=== PATIENT | male | born 1970 | race Caucasian/White ===

== ENCOUNTER 2018-08-15 21:27 | Emergency (ER) | payer OTHER, MEDICARE ==
[2018-08-15] MEDS ORDERED: BENADRYL 50 MG/ML IV ONE (21:46)
[2018-08-15] MEDS ORDERED: solu-MEDROL 125 MG IV ONE (21:46)
[2018-08-15] MEDS ORDERED: Lasix 40 MG/4 ML IV ONE (21:48)
--- NOTE | 2018-08-15 21:54 | ERPHSYRPT ---
- History of Present Illness Time Seen by Provider: 08/15/18 21:40 Source: patient Exam Limitations: clinical condition Patient Subjective Stated Complaint: pt states he has swelling in his hands and feet and a red rash on his feet which he thinks may be an allergic reaction. Triage Nursing Assessment: pt alert and oriented. answers questions approp. pt ambulatoryw ith steady gait noted. arrive with officer from longterm. respirations nonlabored with lungs cta. rash noted to extremities and body- pt states is his normal qwith psoriasis. petichial rash to tops of feet pt states is new. pitting edema 2+ to bilat hands and feet. Physician History: PATIENT WITH A HISTORY OF DEPRESSION AND PSORIASIS STATES HE DEVELOPED AN ALLERGIC REACTION 1 WEEK AGO AND NOW HAS PROGRESSIVE SWELLING WITH A RASH OVER HIS HANDS AND FEET, ASSOCIATED WITH GENERALIZED ITCHING. PATIENT DENIES DIFFICULTY BREATHING OR SWALLOWING PATIENT STATES HE HAS AN UNKNOWN EXPOSURE. STATES HE MAY HAVE HAD SOME EXPOSURE WHILE CLEANING WITH BLEACH 1 WEEK AGO. Timing/Duration: day(s) Quality: itchy, painful Severity: moderate Location: hands, feet Possible Causes: no cause identified Modifying Factors: Improves With: other (TOOK 1 DOSE OF BENADRYL 1 WEEK AGO) Associated Symptoms: change in skin texture Hx Tetanus, Diphtheria Vaccination/Date Given: Yes Hx Influenza Vaccination/Date Given: No Hx Pneumococcal Vaccination/Date Given: No Immunizations Up to Date: Yes - Review of Systems Constitutional: No Fever, No Chills Eyes: No Symptoms Ears, Nose, & Throat: No Symptoms Respiratory: No Symptoms, No Cough, No Dyspnea Cardiac: No Symptoms, No Chest Pain, No Edema, No Syncope Abdominal/Gastrointestinal: No Abdominal Pain, No Nausea, No Vomiting, No Diarrhea Genitourinary Symptoms: No Symptoms, No Dysuria Musculoskeletal: No Back Pain, No Neck Pain Skin: Pruritis, Skin Lesions, No Rash Neurological: No Dizziness, No Focal Weakness, No Sensory Changes Psychological: No Symptoms Endocrine: No Symptoms All Other Systems: Reviewed and Negative - Past Medical History Pertinent Past Medical History: No - Past Surgical History Past Surgical History: Yes Other Surgical History: back surgery x3 - Social History Smoking Status: Former smoker Exposure to second hand smoke: No Drug Use: none Patient Lives Alone: No ([facility]) - Nursing Vital Signs Nursing Vital Signs: Initial Vital Signs Temperature 97.8 F 08/15/18 21:29 Pulse Rate 83 08/15/18 21:29 Respiratory Rate 18 08/15/18 21:29 Blood Pressure 167/74 08/15/18 21:29 O2 Sat by Pulse Oximetry 95 08/15/18 21:29 Pain Scale Pain Intensity 0 - Physical Exam General Appearance: no apparent distress, alert Eye Exam: PERRL/EOMI, eyes nml inspection Ears, Nose, Throat Exam: normal ENT inspection, pharynx normal, moist mucous membranes Neck Exam: normal inspection, non-tender, supple, full range of motion Respiratory Exam: normal breath sounds, lungs clear, No respiratory distress Cardiovascular Exam: regular rate/rhythm, normal heart sounds Gastrointestinal/Abdomen Exam: soft, mass, No tenderness Back Exam: normal inspection, normal range of motion, No CVA tenderness, No vertebral tenderness Extremity Exam: normal inspection, normal range of motion Neurologic Exam: alert, oriented x 3, cooperative, normal mood/affect, sensation nml, No motor deficits Skin Exam: warm, dry, other (SCALY LESIONS OVER KNEES, ELBOWS WITH PETECHIAE ERTHERMA OVER HAND AND FEET WITH 1+ EDEMA OF HANDS, KWOK AND FEET) SpO2: 96 Oxygen Delivery: Room Air Ordered Tests: Active Orders 24 hr Category Date Time Status BMP Stat Lab 08/15/18 21:46 Ordered CBC W DIFF Stat Lab 08/15/18 21:46 Ordered Medication Summary Discontinued Medications Generic Name Dose Route Start Last Admin Trade Name Oumou PRN Reason Stop Dose Admin Diphenhydramine HCl 50 mg 08/15/18 21:46 08/15/18 22:49 Benadryl 50 Mg/Ml IV 08/15/18 21:47 Not Given STAT ONE Diphenhydramine HCl 50 mg 08/15/18 22:25 08/15/18 22:42 Benadryl 50 Mg/Ml IM 08/15/18 22:26 50 mg STAT ONE Administration Diphenhydramine HCl Confirm 08/15/18 22:29 Benadryl 50 Mg/Ml Administered 08/15/18 22:30 Dose 50 mg .ROUTE .STK-MED ONE Furosemide 40 mg 08/15/18 21:48 08/15/18 22:48 Lasix 40 Mg/4 Ml IV 08/15/18 21:49 Not Given STAT ONE Furosemide 40 mg 08/15/18 22:26 08/15/18 22:43 Lasix 40 Mg PO 08/15/18 22:27 40 mg STAT ONE Administration Furosemide Confirm 08/15/18 22:37 Lasix 40 Mg Administered 08/15/18 22:38 Dose 40 mg .ROUTE .STK-MED ONE Sodium Chloride 1,000 mls @ 50 mls/hr 08/15/18 22:00 08/15/18 22:48 Sodium Chloride 0.9% 1000 Ml IV 09/14/18 21:59 Not Given .Q20H ORI Methylprednisolone Sodium Succinate 125 mg 08/15/18 21:46 08/15/18 22:48 Solu-Medrol 125 Mg IV 08/15/18 21:47 Not Given STAT ONE Prednisone 60 mg 08/15/18 22:25 08/15/18 22:43 Deltasone 20 Mg PO 08/15/18 22:26 60 mg STAT ONE Administration Prednisone Confirm 08/15/18 22:29 Deltasone 20 Mg Administered 08/15/18 22:30 Dose 60 mg .ROUTE .STK-MED ONE - Progress Progress Note: 08/15/18 22:20 ADMINISTERED BENADRYL 50MG IM, PREDNISONE 60MG AND LASIX 40MG PO 08/15/18 22:26 08/15/18 23:15, ITCHING HAS IMPROVED Counseled pt/family regarding: lab results, diagnosis, need for follow-up - Departure Time of Disposition: 23:25 Departure Disposition: Residential/[facility] Clinical Impression: CONTACT DERMATITIS Condition: Stable Critical Care Time: No Additional Instructions: GIVE BENADRYL 50MG EVERY 4 HOURS FOR ITCHING NEEDED EVERY 4 HOURS NEEDED. PREDNISONE 20MG, 3 TABLETS DAILY FOR 2 DAYS FOLLOWED BY 40MG DAYS 3-6. FOLLOWUP WITH YOUR PRIMARY CARE PROVIDER IN 4-5 DAYS. Prescriptions: Prednisone 20 mg [Deltasone 20 mg] 20 mg PO DAILY #12 tablet
[2018-08-15] MEDS ORDERED: Sodium Chloride 0.9% 1000 ML 1,000 ML IV SCH (22:00)
[2018-08-15] MEDS ORDERED: BENADRYL 50 MG/ML IM ONE (22:25)
[2018-08-15] MEDS ORDERED: DELTASONE 20 MG PO ONE (22:25)
[2018-08-15] MEDS ORDERED: Lasix 40 MG PO ONE (22:26)
[2018-08-15] MEDS ORDERED: DELTASONE 20 MG ONE (22:29)
[2018-08-15] MEDS ORDERED: BENADRYL 50 MG/ML ONE (22:29)
[2018-08-15] MEDS ORDERED: Lasix 40 MG ONE (22:37)
[2018-08-15 23:27] VITALS: BP 142/78; PULSE 84; O2SAT 97
== END 2018-08-15 23:26 | disposition home or self-care (01) ==
LOC: ED 21:27
DX: L25.9 Unspecified contact dermatitis, unspecified cause (principal)
CPT/HCPCS: 96372; 99284; J1200; A9270-GY

== ENCOUNTER 2024-04-05 14:35 | Emergency (ER) | payer MEDICARE, OTHER ==
[2024-04-05] MEDS ORDERED: XYLOCAINE 2% Uro-Jet ONE (15:05)
[2024-04-05] MEDS: XYLOCAINE 100 MG/5 ML ABBOJECT IV ONE (15:22)
--- NOTE | 2024-04-05 15:28 | ERPHSYRPT ---
- History of Present Illness Time Seen by Provider: 04/05/24 15:28 Historian: patient Exam Limitations: no limitations Physician History: The patient, with a history of chronic back pain and three prior back surgeries, presented with urinary symptoms of four days duration. He reported a sensation of thick urine and decreased urinary output. The patient also described the urine as shree and experienced prolonged urination times, sometimes up to 30-45 minutes. He also reported the need to sit to urinate due to difficulty standing. The patient reported sensitivity during a catheterization attempt, which yielded no urine output. He also reported abdominal and kidney pain, but denied hematuria. He had a single episode of fever in the past week, but it was not severe. The patient also reported a significant weight gain of fifteen pounds over the last ten days. He noted that his abdomen was unusually hard and that he usually weighs around 250 pounds. In addition to these symptoms, the patient reported chronic psoriasis and knee issues. He was scheduled for knee surgery last month but decided against it. He usually wears a knee brace, but noted significant swelling when the brace was removed. Timing/Duration: day(s) (4) Activities at Onset: rest Quality: sharpness, stabbing, throbbing Abdominal Pain Onset Location: flank Pain Radiation: groin Severity of Pain-Max: severe Severity of Pain-Current: moderate Modifying Factors: Worsens With: urinating Associated Symptoms: denies symptoms Previous symptoms: no prior history Allergies/Adverse Reactions: No Known Drug Allergies Allergy (Unverified 04/05/24 15:20) Home Medications: No Reportable Medications [No Reported Medications] 04/05/24 [History] Hx Tetanus, Diphtheria Vaccination/Date Given: Yes Hx Influenza Vaccination/Date Given: No Hx Pneumococcal Vaccination/Date Given: No - Review of Systems All Other Systems: Reviewed and Negative - Past Medical History Pertinent Past Medical History: No - Past Surgical History Past Surgical History: Yes Other Surgical History: back surgery x3 - Social History Smoking Status: Former smoker Exposure to second hand smoke: No Drug Use: none Patient Lives Alone: No ([facility]) - Nursing Vital Signs Nursing Vital Signs: Initial Vital Signs Temperature 98.4 F 04/05/24 15:22 Pulse Rate 66 04/05/24 15:22 Respiratory Rate 20 04/05/24 15:22 Blood Pressure 190/85 04/05/24 15:22 O2 Sat by Pulse Oximetry 96 04/05/24 15:22 Pain Scale Pain Intensity 8 - Physical Exam General Appearance: no apparent distress Respiratory Exam: airway intact, No respiratory distress Cardiovascular Exam: regular rate/rhythm, capillary refill <2 sec, No edema Gastrointestinal/Abdomen Exam: distention, other (firm), No tenderness, No guarding, No rebound Male Genitalia Exam: normal genitalia Back Exam: No CVA tenderness Neurologic Exam: alert, oriented x 3, cooperative Skin Exam: normal color, warm, dry SpO2 Interpretation: normal O2 Delivery: Room Air - Course Nursing assessment & vital signs reviewed: Yes - CT Exams Abdomen/Pelvis CT Interpretation: Tele-radiologist Report, Other (19.5mm obstructing stone right, 18mm obstructing stone left with b/l hydro) Ordered Tests: Medication Summary Discontinued Medications Generic Name Dose Route Start Last Admin Trade Name Freq PRN Reason Stop Dose Admin Ceftriaxone Sodium 1,000 mg 04/05/24 17:34 04/05/24 17:58 Ceftriaxone Sodium 1000 Mg Inj Vial IM 04/05/24 17:35 1,000 mg STAT ONE Administration Ceftriaxone Sodium Confirm 04/05/24 17:50 Ceftriaxone Sodium 1000 Mg Inj Vial Administered 04/05/24 17:51 Dose 1,000 mg .ROUTE .STK-MED ONE Lidocaine HCl Confirm 04/05/24 15:05 Lidocaine Hcl 20 Mg/Ml Jelly Uro-Jet Administered 04/05/24 15:06 Dose 200 mg .ROUTE .STK-MED ONE Lidocaine HCl 100 mg 04/05/24 15:22 04/05/24 15:22 Lidocaine Hcl 100 Mg/5 Ml Abboject IV 04/05/24 15:23 100 mg STAT ONE Administration Lidocaine HCl Confirm 04/05/24 17:50 Lidocaine Hcl 1% 20 Ml Mdv 20 Ml Ml Administered 04/05/24 17:51 Dose 3 ml .ROUTE .STK-MED ONE Lab/Rad Data: Laboratory Result Diagrams 04/05/24 16:20 04/05/24 16:20 Laboratory Results 04/05/24 04/05/24 Range/Units 16:20 16:20 WBC 13.5 H (4.23-9.07) x10^3/uL RBC 3.59 L (4.63-6.08) x10^6/uL Hgb 10.1 L (13.7-17.5) g/dL Hct 31.4 L (40.1-51.0) % MCV 87.5 (79.0-92.2) fL MCH 28.1 (25.7-32.2) pg MCHC 32.2 L (32.3-36.5) g/dL RDW 14.7 H (11.6-14.4) % Plt Count 461 H (163-337) x10^3/uL MPV 9.1 L (9.4-12.4) fL Gran % 78.5 H (34.0-67.9) % Immature Gran % (Auto) 0.6 H (0.001-0.429) % Nucleat RBC Rel Count 0.0 (0.00-0.2) % Eos # (Auto) 0.18 (0.04-0.54) x10^3/uL Immature Gran # (Auto) 0.08 H (0.001-0.031) x10^3u/L Absolute Lymphs (auto) 1.65 (1.32-3.57) x10^3/uL Absolute Monos (auto) 0.96 H (0.30-0.82) x10^3/uL Absolute Nucleated RBC 0.00 (0.00-0.012) x10^3u/L Lymphocytes % 12.2 L (21.8-53.1) % Monocytes % 7.1 (5.3-12.2) % Eosinophils % 1.3 (0.8-7.0) % Basophils % 0.3 (0.2-1.2) % Absolute Granulocytes 10.57 H (1.78-5.38) x10^3/uL Basophils # 0.04 (0.01-0.08) x10^3/uL Sodium 135 (135-145) mmol/L Potassium 5.6 H (3.5-5.1) mmol/L Chloride 103 (98-107) mmol/L Carbon Dioxide 7 L* (22-30) mmol/L Anion Gap 30.0 H (5-15) MEQ/L BUN 107 H (9-20) mg/dL Creatinine 21.22 H (0.66-1.25) mg/dL Estimated GFR 2.3 ML/MIN Glucose 95 (74-106) mg/dL Calcium 8.0 L (8.4-10.2) mg/dL Total Bilirubin 0.70 (0.2-1.3) mg/dL AST 10 L (17-59) U/L ALT 13 (0-50) U/L Alkaline Phosphatase 130 H (38-126) U/L Serum Total Protein 7.5 (6.3-8.2) g/dL Albumin 3.5 (3.5-5.0) g/dL - Progress Progress: unchanged Progress Note: Patient found to be in acute renal failure due to b/l obstructing stones within the proximal ureter with hydro. Cr 22, GFR 4, K 5.8. Patient will need nephrostomy tube and ESWL therapy to remove stones. Attempted transfer to [facility], but no urology available. Discussed case with [facility] who doesn't have anyone to place nephrostomy tube so they are unable to accept the patient. While waiting to hear from [facility] in [place] patient decided that he wanted to leave [place] despite understanding the risk of . Counseled pt/family regarding: lab results, diagnosis, need for follow-up, rad results Medical Desision Making - Diagnostic Testing Diagnostic test were ordered, analyzed, and reviewed by me: Yes Radiological Interpretation: Interpreted by me, Reviewed by me, Teleradiologist Report - Risk of complications The pt has a mod risk of morbidity or mortality based on: Need for prescription drug management The pt has a high risk of morbidity or mortality based on: Decision regarding hospitilization or escalation of hosp level of care - Departure Departure Disposition: AMA Clinical Impression: Acute renal failure, Hydronephrosis, Hydronephrosis with obstructing calculus, Anemia Condition: Good Critical Care Time: No Referrals: ABBEY LYNN [Primary Care Provider] - Follow up/PCP as directed Instructions: Kidney stones in adults
[2024-04-05 15:31] VITALS: PULSE 66; RESP 20; TEMP 98.4; O2SAT 96
[2024-04-05 16:23] LABS: Absolute Neutrophil Ct (ANC) 10.57 x10^3/uL (1.78-5.38); BASOPHIL % 0.3 % (0.2-1.2); Basophil (Absolute #) 0.04 x10^3/uL (0.01-0.08); Eosinophil % 1.3 % (0.8-7.0); Eosinophil (Absolute #) 0.18 x10^3/uL (0.04-0.54); Hematocrit 31.4 % (40.1-51.0); Hemoglobin 10.1 g/dL (13.7-17.5); IMMATURE GRAN # 0.08 x10^3u/L (0.001-0.031); IMMATURE GRAN % 0.6 % (0.001-0.429); Lymphocyte (Absolute #) 1.65 x10^3/uL (1.32-3.57); Lymphocytes % 12.2 % (21.8-53.1); Mean Cell Volume 87.5 fL (79.0-92.2); Mean Corpuscular Hemoglobin 28.1 pg (25.7-32.2); Mean Corpuscular Hgb Concent. 32.2 g/dL (32.3-36.5); Mean Platelet Volume 9.1 fL (9.4-12.4); Monocyte (Absolute #) 0.96 x10^3/uL (0.30-0.82); Monocytes % 7.1 % (5.3-12.2); Neutrophil % 78.5 % (34.0-67.9); Platelet Count 461 x10^3/uL (163-337); Red Blood Count 3.59 x10^6/uL (4.63-6.08); Red Cell Distribution Width 14.7 % (11.6-14.4); White Blood Count 13.5 x10^3/uL (4.23-9.07)
[2024-04-05 16:48] LABS: ALBUMIN 3.5 g/dL (3.5-5.0); BILIRUBIN,TOTAL 0.7 mg/dL (0.2-1.3); Potassium 5.6 mmol/L (3.5-5.1); Total Protein 7.5 g/dL (6.3-8.2)
[2024-04-05 16:53] LABS: EST GLOMERULAR FILTRATION RATE 2.3 ML/MIN
[2024-04-05 16:59] LABS: Creatinine 1 21.22 mg/dL (0.66-1.25)
--- NOTE | 2024-04-05 17:29 | XRAY ---
CLINICAL HISTORY: abd pain COMPARISON: None. TECHNIQUE: A Non-contrast CT of the abdomen and pelvis was performed, with the following protocol: axial images with, and reconstructed coronal and sagittal images. One of the following dose reduction techniques was utilized for this exam: Automated exposure control, adjustment of the mA and/or kV according to patient size, and use of iterative reconstruction. FINDINGS: Abdomen: Liver: Normal in size, shape, and density. Two cystic hypodense lesion are noted in the segment VII and VIII of the liver suggesting hepatic cyst. No intrahepatic and extrahepatic biliary dilatation is noted. Gallbladder and Biliary System: The gallbladder is contracted at the time of examination No pericholecystic fluid noted. or definite gallstones were identified. Pancreas: Fatty infiltration of pancreas is noted. No pancreatic masses or calcifications were noted. The pancreatic duct is not dilated. Spleen: Normal in size, shape, and density. Caclified foci are noted in the spleen. Kidneys and Adrenal Glands: Enlarged swollen both kidneys are noted with perinephric fat stranding and thickening of Gerot[place] fas[place]. Large calculs is noted in the right renal pelvis of 19.5mm. A large calculus is noted in the left renal pelvis of 18mm. There is moderate bilateral hydronephrosis noted. A hypodense cyst is noted in the upper pole of left kidney of 30 x 37mm. Small perihiar lymph nodes are noted. Calcifications are noted in the inferior pole capsule/lining of the left kidney. Adrenal glands are unremarkable with no evidence of masses or hyperplasia. Pelvis: Urinary Bladder: Suboptimal distention of urinary baldder noted. Prostate: Normal in size and contour. Calcifications are noted. Rectum and Sigmoid Colon: Normal wall thickness and no evidence of mass. Peritoneal and Retroperitoneal Structures: No free fluid or abnormal fluid collections were identified within the abdomen or pelvis. Multiple lymphadenopathy was noted at the para-aortic, retro caval, pre-caval, common iliac and inguinal groups Atherosclerotic changes are noted in the abdominal aorta. Bowel: The visualized bowel loops are normal in caliber and appearance. No evidence of bowel obstruction or wall thickening. Appendix is not clearly delineated. A large lymph node si noted in the right iliac fossa. Right fat containing uncomplicated inguinal hernia noted. Bones and Soft Tissues: Generalized body wall edema noted. Osteopenia is noted. Spondylodegenerative changes are noted in the thoracolumbar spine. Bilateral enlarged inguinal lymph nodes noted. Covered lung bases appear clear. IMPRESSION: 1. Swollen, enlarged both kidneys with perinephric fat stranding with bilateral large calculi are noted in both renal pelvis, 19.5mm on the right and 18mm on the left. 2. Calcification of the left lower capsule/cortical lining. 3. The above findings suggest pyelonephritis on the background of obstructive uropathy. 4. The appendix is not clearly seen with an enlarged lymph node of 13mm and fat stranding at the right iliac fossa. Needs clinical correlation if there is a clinical concern of possible acute appendicitis. 5. Multiple lymphadenopathy was noted at the para-aortic, retro caval, pre-caval, common iliac, and inguinal groups, for clinical correlation and further evaluation. 6. Two small simple hepatic cysts. 7. Right fat containing uncomplicated inguinal hernia noted. 8. Fatty changes in the pancreas. Electronically Signed by: Nadiya Castañeda MD. (04/05/2024 17:25:04 EDT)
[2024-04-05] MEDS ORDERED: XYLOCAINE 1% HCL 20 ML MDV ONE (17:50)
[2024-04-05] MEDS ORDERED: Rocephin 1000 MG INJ ONE (17:50)
[2024-04-05] MEDS: Rocephin 1000 MG INJ IM ONE (17:58)
[2024-04-05 18:10] VITALS: BP 173/86
== END 2024-04-05 18:14 | disposition left against medical advice (07) ==
LOC: ED 14:35
DX: N17.9 Acute kidney failure, unspecified (principal); N13.2 Hydronephrosis with renal and ureteral calculous obstruction; D64.9 Anemia, unspecified; R39.89 Other symptoms and signs involving the genitourinary system; R10.9 Unspecified abdominal pain
CPT/HCPCS: 36415; 51702; 74176; 80053; 85025; 96372; 99284; J0696; J2001